=== PATIENT | female | born 1990 | race Caucasian/White ===

== ENCOUNTER 2018-07-09 14:19 | Emergency (ER) | payer OTHER ==
[2018-07-09] MEDS ORDERED: SODIUM CHLORIDE 0.9% 1,000 ML IV STA (15:19)
--- NOTE | 2018-07-09 15:22 | ED ---
General Adult HPI - General Chief complaint: Seizure Stated complaint: seizure Time Seen by Provider: 07/09/18 15:05 Source: patient, EMS, RN notes reviewed, old records reviewed Mode of arrival: EMS Limitations: no limitations - History of Present Illness Initial comments: 27-year-old female presenting for evaluation of suspected seizure. Patient is currently in rehab, she was previously using heroin, she has been clean for 14 days. She was started on BuSpar and trazodone for symptom control during rehab. She had an episode lasting approximately 1 minute, she was told that she was having a seizure by other individuals at the facility. Patient does not recall events. She states she was sleeping at this time, no injury. She did not have any postictal phase or confusion after the event. She states she feels okay right now complaining of a mild headache. 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 No trauma. No chest pain, no abdominal pain, no nausea vomiting, no fever or chills. - Related Data Home Medications Medication Instructions Recorded Confirmed Acetaminophen [Tylenol 8 Hour] 650 mg PO Q4H PRN 07/09/18 07/09/18 Buprenorphine HCl/Naloxone HCl 1 film SL DAILY 07/09/18 07/09/18 [Suboxone 4 mg-1 mg Sl Film] Calc/Magnes 1000/500mg 1 tab PO TID PRN 07/09/18 07/09/18 Chlorpheniramine Maleate 4 mg PO Q4H PRN 07/09/18 07/09/18 [Chlor-Trimeton] Ibuprofen [Motrin] 600 mg PO Q6H PRN 07/09/18 07/09/18 Multivitamins, Thera [Multivitamin 1 tab PO DAILY 07/09/18 07/09/18 (formulary)] Ondansetron HCl [Zofran] 8 mg PO Q6H PRN 07/09/18 07/09/18 Ondansetron [Zofran] 4 mg IM Q6H PRN 07/09/18 07/09/18 Thiamine [Vitamin B-1] 100 mg PO DAILY 07/09/18 07/09/18 busPIRone HCl [Buspar] 10 mg PO TID PRN 07/09/18 07/09/18 traZODone HCL 50 - 150 mg PO HS 07/09/18 07/09/18 Allergies Allergy/AdvReac Type Severity Reaction Status Date / Time bee venom protein (honey bee) Allergy Unknown Verified 07/09/18 14:33 azithromycin AdvReac Unknown Verified 07/09/18 14:33 latex AdvReac Unknown Verified 07/09/18 14:33 Review of Systems ROS Statement: Those systems with pertinent positive or pertinent negative responses have been documented in the HPI. ROS Other: All systems not noted in ROS Statement are negative. Past Medical History Past Medical History: Liver Disease Additional Past Medical History / Comment(s): hep C, cirrhosis History of Any Multi-Drug Resistant Organisms: MRSA Date of last positivie culture/infection: right axilla, left leg MDRO Source:: 2011 Additional Past Surgical History / Comment(s): right acl mcl replacement and repair, endometrial laparoscopy Past Psychological History: Anxiety Smoking Status: Current every day smoker Past Alcohol Use History: None Reported Past Drug Use History: Cocaine, Heroin, IV Drug Use General Exam Limitations: no limitations General appearance: alert, in no apparent distress Head exam: Present: atraumatic, normocephalic Eye exam: Present: normal appearance, PERRL, EOMI ENT exam: Present: normal exam Neck exam: Present: normal inspection. Absent: tenderness, meningismus Respiratory exam: Present: normal lung sounds bilaterally, respiratory distress Cardiovascular Exam: Present: regular rate, normal rhythm GI/Abdominal exam: Present: soft. Absent: distended, tenderness Neurological exam: Present: alert, oriented X3, CN II-XII intact. Absent: motor sensory deficit Psychiatric exam: Present: normal affect, normal mood Skin exam: Present: warm, dry, intact. Absent: cyanosis, diaphoretic Course Vital Signs 07/09/18 07/09/18 07/09/18 14:23 14:30 14:45 Temperature 98.8 F Pulse Rate 72 77 68 Respiratory 16 18 16 Rate Blood Pressure 143/100 143/100 133/87 O2 Sat by Pulse 100 98 100 Oximetry 07/09/18 07/09/18 07/09/18 15:00 15:30 16:00 Temperature Pulse Rate 76 70 78 Respiratory 17 18 18 Rate Blood Pressure 133/87 136/94 155/124 O2 Sat by Pulse 99 100 100 Oximetry EKG Findings - EKG Comments: EKG Findings:: EKG: Normal sinus rhythm, rate of 65, MA interval 192, QRS duration 98, QTC 457 no arrhythmia, no ischemia Medical Decision Making - Medical Decision Making 19-year-old female with history and concern for seizure. Patient is going through drug rehabilitation for her wound infection. She was started on trazodone, and loose bar. She had an episode lasting approximately 1 minute which was concerning for seizure by bystanders however patient had no postictal phase. She is well-appearing with a nonfocal neurologic exam. This may be sleep tremor versus seizure versus other etiology. Workup in the emergency department reveals normal head CT, no intracranial hemorrhage or mass effect, normal CBC, normal electrolytes, normal urinalysis, negative drug screen. Patient's EKG shows normal sinus rhythm with no ischemic changes. Patient is instructed to discontinue trazodone at this time, we will continue rehabilitation for the next 24 hours but she is scheduled for will be given neurology follow-up. He is instructed on seizure precautions and will abstain from driving. - Lab Data Result diagrams: 07/09/18 14:43 07/09/18 14:43 Lab Results 07/09/18 07/09/18 07/09/18 Range/Units 14:43 14:43 15:34 WBC 5.8 (3.8-10.6) k/uL RBC 4.28 (3.80-5.40) m/uL Hgb 11.6 (11.4-16.0) gm/dL Hct 35.8 (34.0-46.0) % MCV 83.5 (80.0-100.0) fL MCH 27.0 (25.0-35.0) pg MCHC 32.4 (31.0-37.0) g/dL RDW 15.9 H (11.5-15.5) % Plt Count 586 H (150-450) k/uL Neutrophils % 69 % Lymphocytes % 21 % Monocytes % 6 % Eosinophils % 2 % Basophils % 0 % Neutrophils # 4.0 (1.3-7.7) k/uL Lymphocytes # 1.2 (1.0-4.8) k/uL Monocytes # 0.3 (0-1.0) k/uL Eosinophils # 0.1 (0-0.7) k/uL Basophils # 0.0 (0-0.2) k/uL Sodium 139 (137-145) mmol/L Potassium 4.5 (3.5-5.1) mmol/L Chloride 108 H (98-107) mmol/L Carbon Dioxide 25 (22-30) mmol/L Anion Gap 6 mmol/L BUN 19 H (7-17) mg/dL Creatinine 0.63 (0.52-1.04) mg/dL Est GFR (CKD-EPI)AfAm >90 (>60 ml/min/1.73 sqM) Est GFR (CKD-EPI)NonAf >90 (>60 ml/min/1.73 sqM) Glucose 85 (74-99) mg/dL Calcium 9.2 (8.4-10.2) mg/dL Total Bilirubin 0.3 (0.2-1.3) mg/dL AST 27 (14-36) U/L ALT 41 (9-52) U/L Alkaline Phosphatase 61 (38-126) U/L Total Protein 7.2 (6.3-8.2) g/dL Albumin 3.9 (3.5-5.0) g/dL Urine Color Light Yellow Urine Appearance Clear (Clear) Urine pH 7.5 (5.0-8.0) Ur Specific Lucas 1.009 (1.001-1.035) Urine Protein Negative (Negative) Urine Glucose (UA) Negative (Negative) Urine Ketones Negative (Negative) Urine Blood Negative (Negative) Urine Nitrite Negative (Negative) Urine Bilirubin Negative (Negative) Urine Urobilinogen <2.0 (<2.0) mg/dL Ur Leukocyte Esterase Negative (Negative) Urine HCG, Qual (Not Detectd) Urine Opiates Screen Not Detected (NotDetected) Ur Oxycodone Screen Not Detected (NotDetected) Urine Methadone Screen Not Detected (NotDetected) Ur Propoxyphene Screen Not Detected (NotDetected) Ur Barbiturates Screen Not Detected (NotDetected) U Tricyclic Antidepress Not Detected (NotDetected) Ur Phencyclidine Scrn Not Detected (NotDetected) Ur Amphetamines Screen Not Detected (NotDetected) U Methamphetamines Scrn Not Detected (NotDetected) U Benzodiazepines Scrn Not Detected (NotDetected) Urine Cocaine Screen Not Detected (NotDetected) U Marijuana (THC) Screen Not Detected (NotDetected) 02/16/19 Range/Units 15:34 WBC (3.8-10.6) k/uL RBC (3.80-5.40) m/uL Hgb (11.4-16.0) gm/dL Hct (34.0-46.0) % MCV (80.0-100.0) fL MCH (25.0-35.0) pg MCHC (31.0-37.0) g/dL RDW (11.5-15.5) % Plt Count (150-450) k/uL Neutrophils % % Lymphocytes % % Monocytes % % Eosinophils % % Basophils % % Neutrophils # (1.3-7.7) k/uL Lymphocytes # (1.0-4.8) k/uL Monocytes # (0-1.0) k/uL Eosinophils # (0-0.7) k/uL Basophils # (0-0.2) k/uL Sodium (137-145) mmol/L Potassium (3.5-5.1) mmol/L Chloride (98-107) mmol/L Carbon Dioxide (22-30) mmol/L Anion Gap mmol/L BUN (7-17) mg/dL Creatinine (0.52-1.04) mg/dL Est GFR (CKD-EPI)AfAm (>60 ml/min/1.73 sqM) Est GFR (CKD-EPI)NonAf (>60 ml/min/1.73 sqM) Glucose (74-99) mg/dL Calcium (8.4-10.2) mg/dL Total Bilirubin (0.2-1.3) mg/dL AST (14-36) U/L ALT (9-52) U/L Alkaline Phosphatase (38-126) U/L Total Protein (6.3-8.2) g/dL Albumin (3.5-5.0) g/dL Urine Color Urine Appearance (Clear) Urine pH (5.0-8.0) Ur Specific Lucas (1.001-1.035) Urine Protein (Negative) Urine Glucose (UA) (Negative) Urine Ketones (Negative) Urine Blood (Negative) Urine Nitrite (Negative) Urine Bilirubin (Negative) Urine Urobilinogen (<2.0) mg/dL Ur Leukocyte Esterase (Negative) Urine HCG, Qual Not Detected (Not Detectd) Urine Opiates Screen (NotDetected) Ur Oxycodone Screen (NotDetected) Urine Methadone Screen (NotDetected) Ur Propoxyphene Screen (NotDetected) Ur Barbiturates Screen (NotDetected) U Tricyclic Antidepress (NotDetected) Ur Phencyclidine Scrn (NotDetected) Ur Amphetamines Screen (NotDetected) U Methamphetamines Scrn (NotDetected) U Benzodiazepines Scrn (NotDetected) Urine Cocaine Screen (NotDetected) U Marijuana (THC) Screen (NotDetected) Disposition Clinical Impression: Generalized seizure Disposition: HOME SELF-CARE Condition: Fair Instructions (If sedation given, give patient instructions): Recurrent Seizures in Adults (ED) Additional Instructions: Please avoid any activity that could be dangerous with seizure activity. Do not drive. Please follow up with neurology. Please discontinue trazodone. Is patient prescribed a controlled substance at d/c from ED?: No Referrals: None,Stated [Primary Care Provider] - 1-2 days Vita Buck MD [Medical Doctor] - 1-2 days Time of Disposition: 16:57
[2018-07-09 15:51] LABS: Basophils % (A) 0 %; Eosinophils # (A) 0.1 k/uL (0-0.7); Eosinophils % (A) 2 %; HCT 35.8 % (34.0-46.0); HGB 11.6 gm/dL (11.4-16.0); Lymphocytes # (A) 1.2 k/uL (1.0-4.8); Lymphocytes % (A) 21 %; MCHC 32.4 g/dL (31.0-37.0); MCV 83.5 fL (80.0-100.0); Mean Platelet Volume 6.7; Monocytes # (A) 0.3 k/uL (0-1.0); Monocytes % (A) 6 %; Neutrophils % (A) 69 %; Platelet Count 586 k/uL (150-450); RBC 4.28 m/uL (3.80-5.40); RDW 15.9 % (11.5-15.5); WBC 5.8 k/uL (3.8-10.6)
[2018-07-09 16:00] LABS: Appearance,Urine Clear (Clear); Bilirubin,Urine Negative (Negative); Blood,Urine Negative (Negative); Color,Urine Light Yellow; Glucose,Urine (UA) Negative (Negative); Ketones,Urine Negative (Negative); Leukocyte Esterase,Urine Negative (Negative); Nitrite,Urine Negative (Negative); PH, Urine 7.5 (5.0-8.0); Protein,Urine Negative (Negative); Specific Gravity,Urine 1.009 (1.001-1.035); Urobilinogen,Urine <2.0 mg/dL (<2.0)
[2018-07-09 16:06] LABS: ALT 41 U/L (9-52); AST 27 U/L (14-36); Albumin 3.9 g/dL (3.5-5.0); Alkaline Phosphatase 61 U/L (38-126); Anion Gap 6 mmol/L; Blood Urea Nitrogen 19 mg/dL (7-17); Calcium 9.2 mg/dL (8.4-10.2); Carbon Dioxide 25 mmol/L (22-30); Chloride 108 mmol/L (98-107); Glucose 85 mg/dL (74-99); Potassium 4.5 mmol/L (3.5-5.1); Sodium 139 mmol/L (137-145); Total Bilirubin 0.3 mg/dL (0.2-1.3); Total Protein 7.2 g/dL (6.3-8.2)
[2018-07-09 16:07] LABS: Amphetamine Screen,Urine Not Detected (NotDetected); Benzodiazepines Screen,Urine Not Detected (NotDetected); Cocaine Screen,Urine Not Detected (NotDetected); Opiate Screen,Urine Not Detected (NotDetected); Phencyclidine Screen,Urine Not Detected (NotDetected); Tricyclic Antidepressant,Urine Not Detected (NotDetected); Urn Cannabinoid Scrn Not Detected (NotDetected)
[2018-07-09 16:08] LABS: Barbiturate Screen,Urine Not Detected (NotDetected); Methadone Screen, Urine Not Detected (NotDetected); Oxycodone Screen, Urine Not Detected (NotDetected)
[2018-07-09 16:44] VITALS: PULSE 78; RESP 18
--- NOTE | 2018-07-09 16:51 | CT ---
EXAMINATION TYPE: CT brain wo con DATE OF EXAM: 07/09/2018 COMPARISON: None HISTORY: Seizure activity. CT DLP: 1098.4 mGycm. Automated Exposure Control for Dose Reduction was Utilized. TECHNIQUE: CT scan of the head is performed without contrast. FINDINGS: Ventricles of normal size. There is no mass effect nor midline shift. There is no sign of i ntracranial hemorrhage. The calvarium is intact. Impression normal head CT scan.
[2018-07-09 17:27] VITALS: BP 137/76; TEMP 98.9
== END 2018-07-09 17:26 | disposition home or self-care (01) ==
LOC: EC 14:19
DX: R56.9 Unspecified convulsions (principal); R51 Headache; F41.9 Anxiety disorder, unspecified; F17.200 Nicotine dependence, unspecified, uncomplicated; Z86.14 Personal history of Methicillin resistant Staphylococcus aureus infection; Z79.891 Long term (current) use of opiate analgesic; Z79.899 Other long term (current) drug therapy; Z91.030 Bee allergy status; Z88.1 Allergy status to other antibiotic agents; Z91.040 Latex allergy status
CPT/HCPCS: 36415; 70450; 80053; 80306; 81003; 81025; 85025; 93005; 96360; 96361; 99285